=== PATIENT | female | born 1960 | race Caucasian/White ===

== ENCOUNTER 2024-04-28 01:17 | Day surgery (SDC) | payer BC, SELFPAY ==
[2024-04-17 14:09] VITALS: BMI 43.3
[2024-04-28 06:23] VITALS: BMI 44.0
[2024-04-28] MEDS: LACTATED RINGERS 1,000 ML 150 ML IV CONT (06:34)
[2024-04-28 06:38] VITALS: BP 157/76; PULSE 90; RESP 20; TEMP 36.3; O2SAT 97
--- NOTE | 2024-04-28 07:00 | P.PNAN_ITS ---
Anes - Initial Pre Proc Eval Procedure: Operation Date: 04/28/24 07:30 Proposed Procedures p Screening Colonoscopy - Bert Barrett MD Date/Time: 04/28/24 07:00 Surgeon: Bert Barrett MD Pre Op Diagnosis: screening malignant neoplasm colon Patient Data Age: 64 Gender: F Height: 1.6 m Weight: 112.7 kg Last Vital Signs Temp 97.3 F L 04/28/24 06:38 Pulse 90 04/28/24 06:38 Resp 20 04/28/24 06:38 BP 157/76 H 04/28/24 06:38 Pulse Ox 97 04/28/24 06:38 O2 Del Method Room Air 04/28/24 06:38 Allergies Allergy/AdvReac Type Severity Reaction Status Date / Time Penicillins Allergy Unknown Hives Verified 04/28/24 06:21 ampicillin AdvReac Mild Hives Verified 04/28/24 06:21 azithromycin AdvReac Unknown Other Verified 04/28/24 06:21 Home Medications ?Medication ?Instructions ?Recorded ?Confirmed ?Type aspirin 81 mg tablet,delayed 81 mg PO DAILY 10/04/23 04/28/24 History release (Adult Low Dose Aspirin) levothyroxine 50 mcg tablet 50 mcg PO DAILY #90 tabs 04/07/24 04/28/24 Rx lisinopril 10 1 tablet PO DAILY #90 tabs 04/07/24 04/28/24 Rx mg-hydrochlorothiazide 12.5 mg tablet rosuvastatin 20 mg tablet 20 mg PO DAILY #90 tabs 04/07/24 04/28/24 Rx Patient hx anesthesia problems: other (Pt had hx of aspiration during and 2016, required abx. ) Family hx anesthesia problems: none Results Review: All pre-operative results and documents have been reviewed as part of the pre- operative evaluation. [facility] Past Medical History Medical History Osteoarthritis Hypothyroidism Hypercholesterolemia Hypertension Surgical History Surgical History H/O colonoscopy 08/23/2017 Dr. Beckham repeat 5-7 years Hx of appendectomy Family History Family History Father Hypertension Heart disease Social History Social History Smoking status: Never smoker Alcohol intake: never Substance use: never Substance use type: does not use Do You Feel Safe in your Home?: Yes Lack of Transportation: No Lack of Food: Never True Current Housing: I Have Housing Concerned About Future Housing: No Difficulty Paying Gas/Electric Bills: No Difficulty Paying for Meds: No Currently Unemployed: No Education: Decline to Answer Difficulty w/ Childcare or Family Care: No Living arrangements: alone Occupation/Education: occupation Additional occupation/education comments: Sales [employer] Gender identity (if verbalized by the patient): Female Sexual Orientation (if Verbalized by the Patient): Straight or Heterosexual Anes - Eval Final PreProcedure Day of Procedure 04/28/24 07:00 Patient weight: morbidly obese Heart: regular rate and rhythm Lungs: normal air movement Airway: Mallampati scale class III Neurological: alert and oriented Last oral intake: >/= 8 hours ASA classification: III Emergent: no Anesthetic plan: proceed Anesthesia type and monitoring: general GIVS and standard monitoring Results Review: All pre-operative results and documents have been reviewed as part of the pre- operative evaluation. HTN, hyperlipidemia, hypothyroidism. Informed Consent: The patient's anesthetic plan and its attendant risks and benefits were d iscussed with the patient/family/POA. Questions were solicited and answers provided to the satisfaction of the patient/family/POA.
--- NOTE | 2024-04-28 07:18 | P.HP_ITS ---
History of Present Illness History of Present Illness Consent: Risks, benefits, and alternatives have been discussed and questions answered. Patient agrees to proceed with procedure. Chief complaint: screening malignant neoplasm colon Narrative: Sultana Woods is a 64 year old female with colon polyp in first colonoscopy, last one 6 years ago without any. Review of Systems Review of Systems: All systems reviewed & are unremarkable except as noted in HPI and below PMFSH Past Medical History Medical History (Updated 04/28/24 @ 07:19 by Bert Barrett MD) Colon polyp Osteoarthritis Hypothyroidism Hypercholesterolemia Hypertension Surgical History Surgical History H/O colonoscopy 08/23/2017 Dr. Beckham repeat 5-7 years Hx of appendectomy Family History Family History Father Hypertension Heart disease Social History Social History Smoking status: Never smoker Alcohol intake: never Substance use: never Substance use type: does not use Do You Feel Safe in your Home?: Yes Lack of Transportation: No Lack of Food: Never True Current Housing: I Have Housing Concerned About Future Housing: No Difficulty Paying Gas/Electric Bills: No Difficulty Paying for Meds: No Currently Unemployed: No Education: Decline to Answer Difficulty w/ Childcare or Family Care: No Living arrangements: alone Occupation/Education: occupation Additional occupation/education comments: Sales at [employer] Gender identity (if verbalized by the patient): Female Sexual Orientation (if Verbalized by the Patient): Straight or Heterosexual Meds Home Medications and Allergies Home Medications ?Medication ?Instructions ?Recorded ?Confirmed ?Type aspirin 81 mg tablet,delayed 81 mg PO DAILY 10/04/23 04/28/24 History release (Adult Low Dose Aspirin) levothyroxine 50 mcg tablet 50 mcg PO DAILY #90 tabs 04/07/24 04/28/24 Rx lisinopril 10 1 tablet PO DAILY #90 tabs 04/07/24 04/28/24 Rx mg-hydrochlorothiazide 12.5 mg tablet rosuvastatin 20 mg tablet 20 mg PO DAILY #90 tabs 04/07/24 04/28/24 Rx Allergies Allergy/AdvReac Type Severity Reaction Status Date / Time Penicillins Allergy Unknown Hives Verified 04/28/24 06:21 ampicillin AdvReac Mild Hives Verified 04/28/24 06:21 azithromycin AdvReac Unknown Other Verified 04/28/24 06:21 Vital Signs Vital Signs - 24 hr 04/28/24 06:38 Temperature 97.3 F L Pulse Rate 90 Respiratory Rate 20 Blood Pressure 157/76 H Pulse Oximetry 97 Oxygen Delivery Room Air Exam Const: General: comfortable and no acute distress HENMT: Face/Nose/Sinus: Normal nares present Eyes: General: appearance normal, both eyes and all related structures Neck: Neck: no JVD Resp: Auscultation: clear to auscultation bilaterally Cardio: Rate: regular rate Rhythm: regular rhythm GI: Inspection: non-distended GI Palp: Yes Soft to palpation Skin: General skin exam: normal color Neuro: Speech: normal speech Extrem: General: normal to inspection Psych: Mental Status: mental status grossly normal Assessment and Plan Assessment and plan (1) Colon polyp: Code(s): K63.5 - Polyp of colon Status: Acute Assessment and Plan: colonoscopy
[2024-04-28 07:40] VITALS: BP 101/60; PULSE 77; RESP 21; O2SAT 98
[2024-04-28 07:50] VITALS: BP 114/83; PULSE 72; RESP 22; O2SAT 98
[2024-04-28 08:00] VITALS: BP 125/96; PULSE 64; RESP 19; O2SAT 100
== END 2024-04-28 08:04 | disposition home or self-care (01) ==
PROVIDERS: PCP Nurse Practitioner Family; Visit Provider Internal Medicine Gastroenterology
PROC: 0DJD8ZZ Inspection of Lower Intestinal Tract, Via Natural or Artificial Opening Endoscopic (ICD-10-PCS; CPT 45378; principal; 2024-04-28 07:30)
DX: Z12.11 Encounter for screening for malignant neoplasm of colon (principal); K64.8 Other hemorrhoids; E03.9 Hypothyroidism, unspecified; I10 Essential (primary) hypertension; E78.00 Pure hypercholesterolemia, unspecified; M19.90 Unspecified osteoarthritis, unspecified site; E66.01 Morbid (severe) obesity due to excess calories; Z68.41 Body mass index [BMI] 40.0-44.9, adult; Z79.82 Long term (current) use of aspirin; Z98.890 Other specified postprocedural states; Z86.0100 Personal history of colon polyps, unspecified; Z82.49 Family history of ischemic heart disease and other diseases of the circulatory system
CPT/HCPCS: 45378; J2003; J2704; J7120